=== PATIENT | male | born 1955 | race Caucasian/White ===

== ENCOUNTER 2016-09-12 09:07 | Emergency (ER) | payer BC ==
[~2016-09-12] VITALS: Ht 175.3 cm; Wt 100.0 kg
[~2016-09-12 09:07] MED LIST: HYDR12.56 PO
[2016-09-12 09:13] VITALS: TEMP 37; Ht 175.3 cm; Wt 100.0 kg
[2016-09-12] MEDS ORDERED: HYDR25TA4 PO (09:24)
[2016-09-12] MEDS ORDERED: LSN5 PO (09:24)
[2016-09-12] MEDS ORDERED: LIDOCAINE/EPINEPHRINE 1% 20 ML VIAL INFIL ONE (09:30)
[2016-09-12] MEDS ORDERED: SULFAMETHOXAZOLE/TRIMETHOPRIM DS 800/160MG TAB PO STA (10:27)
[2016-09-12] MEDS ORDERED: CEPHALEXIN 500MG HOME PACK 1 EA BTL PO ONE (10:30)
[2016-09-12] MEDS ORDERED: CEPH500C2 PO (10:45)
[2016-09-12] MEDS ORDERED: CEPHALEXIN MONOHYDRATE 250 MG CAP PO ONE (10:45)
[2016-09-12] MEDS ORDERED: SULF800T23 PO (10:45)
[2016-09-12 10:49] VITALS: BP 146/94; PULSE 85; O2SAT 98
--- NOTE | 2016-09-12 14:05 | EMERGENCY ROOM VISIT NOTE ---
History Report prepared by Shyanne: Marie Lundberg Under the Supervision of: Dr. Krish Mack D.O. First contact with patient: 09:17 Chief Complaint: WOUND INFECTION Stated Complaint: CYST Nursing Triage Summary: pt reports abcess to left shoulder/back area It is red and swollen pt reports he was to his PCP and they sent him here he reports he has been having trouble sleeping at night with it he reports no fevers and history of HTN and abcesses like this needing drainage History of Present Illness The patient is a 60 year old male who presents to the Emergency Room with complaints of a worsening infection starting a week ago. The patient reports that he has a cyst on the upper part of his left shoulder that he believes has become infected. The patient reports that it is painful and has become so large , it is uncomfortable to sleep now. He reports that he has had this before and had gone to has PCP who told him to come to the ED. He states that he decided to just come to the ED this time to cut out the middle man. The patient notes that he is also experiencing pain into his left arm. The patient denies fevers, chills, nausea, vomiting, weakness in arms, numbness in arms, and swelling in arms. Source of History: patient Onset: a week ago Position: other (global) Quality: other (global) Timing: worsening Associated Symptoms: No fevers, No chills, No nausea, No vomiting, No weakness, No numbness Note: The patient is experiencing pain in his left arm. The patient denies swelling in arms. Review of Systems See HPI for pertinent positives & negatives. A total of 10 systems reviewed and were otherwise negative. Past Medical & Surgical Medical Problems: (1) Abscess Family History No pertinent family history Social History Smoking Status: Never Smoker Drug Use: none Housing Status: lives with family Occupation Status: employed Current/Historical Medications Scheduled Cephalexin Monohydrate (Keflex), 500 MG PO QID Hydrochlorothiazide (Hctz), 25 MG PO DAILY Lisinopril (Lisinopril), 5 MG PO DAILY Sulfa/Trimethoprim (Bactrim Ds 800MG/160MG), 1 TAB PO BID Allergies Coded Allergies: No Known Allergies (Verified , 09/12/16) Physical Exam Vital Signs Date Time Temp Pulse Resp B/P (MAP) Pulse Ox O2 Delivery O2 Flow Rate FiO2 09/12/16 10:49 85 16 146/94 98 Room Air 09/12/16 09:13 37.0 81 16 145/100 99 Room Air Physical Exam GENERAL: Patient is awake, alert, and in no acute distress. Patient is resting comfortably and showing no signs of anxiety EYES: The conjunctivae are clear. The pupils are round and reactive. EARS, NOSE, MOUTH AND THROAT: The nose is without any evidence of any deformity. Mucous membranes are moist tongue is midline NECK: The neck is nontender and supple. RESPIRATORY: Normal respiratory effort is noted there is no evidence of wheezing rhonchi or rales CARDIOVASCULAR: Regular rate and rhythm noted there no murmurs rubs or gallops normal S1 normal S2 GASTROINTESTINAL: The abdomen is soft. Bowel sounds are present in all quadrants. Abdomen is nontender MUSCULOSKELETAL/EXTREMITIES: There is no evidence of gross deformity full range of motion is noted in the hips and shoulders SKIN: There is no obvious evidence of any rash. There are no petechiae, pallor or cyanosis noted. Fluctuant area in left posterior shoulder, no surrounding cellulitis noted, no drainage appreciated. NEUROLOGIC: Patient is awake alert and oriented x3 strength is symmetric patellar reflexes are 2+ bilaterally Medical Decision & Procedures Medications Administered Medications (Trade) Dose Ordered Sig/Nagi Route Start Time Stop Time Status Last Admin Dose Admin Trimethoprim/ Sulfamethoxazole (Septra Ds 800/ 160MG Tab) 1 tab NOW STAT PO 09/12/16 10:27 09/12/16 10:29 DC 09/12/16 10:47 1 TAB Cephalexin Monohydrate (Keflex Cap) 500 mg NOW ONCE PO 09/12/16 10:45 09/12/16 10:46 DC 09/12/16 10:47 500 MG Procedure Incision & Drainage Indication: Abscess. Location: Left posterior shoulder Verbal consent was obtained after the risks and benefits were explained, including but not limited to bleeding, scarring, infection, pain, and bone/joint /nerve damage. At this time, the risks of the procedure are less than the risks of NOT performing the procedure. A time out was taken and the correct patient and site identified. The skin was prepped with betadine and a sterile field set. The wound was anesthetized with 10 ml of 1% lidocaine without epinephrine. The abscess cavity was entered with a number 11 blade and copious purulent material expressed. Copious irrigation was performed using normal saline. Debridement was not performed. Packing placed and a sterile dressing applied. Detailed wound care instructions and signs and symptoms of worsening infection reviewed with the patient. No complications and the patient tolerated the procedure well. ED Course 916: The patient was evaluated in room C4. A complete history and physical examination were performed. 0930: Ordered Lidocaine/ Epinephrine 20 ml INFIL. 1027: Ordered Septra Ds 800/ 160MG Tab 1 tab PO. 1030: Ordered Keflex 500MG Home Pack 1 homepack PO. 1045: Ordered Keflex Cap 500 mg PO. 1052: Upon reevaluation, the patient is resting comfortably. I discussed the results and treatment plan with him. The patient verbalized agreement of the treatment plan. The patient was discharged home. Medical Decision Medication Reconciliation: I attest that I have personally reviewed the patient' s current medications list. Patient was found to have a slightly elevated blood pressure due to circumstances. I do not believe that the patient requires hypertension monitoring. Differential diagnosis: Etiologies such as cellulitis, abscess, MRSA infection, DVT, necrotizing fasciitis, dermatitis, drug eruption, as well as others were entertained.. The patient is a 60-year-old male who presented to the emergency department for an evaluation of swelling on his left posterior shoulder. The patient had a very large cutaneous abscess noted. The patient was treated with antibiotics the emergency department. Incision and drainage was undertaken with copious amounts of purulent material noted. The wound was packed. The patient was encouraged to take the packing out in 48 hours or return to the emergency department for wound packing removal. He was also encouraged to continue all medications as prescribed and follow-up with his family doctor. He was also encouraged to return the emergency Department immediately if he develop worsening symptoms such as high fever severe pain severe swelling bleeding or if need arises. Impression Primary Impression: Abscess Additional Impressions: Encounter for incision and drainage procedure Abscess of left shoulder Scribe Attestation The scribe's documentation has been prepared under my direction and personally reviewed by me in its entirety. I confirm that the note above accurately reflects all work, treatment, procedures, and medical decision making performed by me. Departure Information Dispostion Home / Self-Care Prescriptions Sulfa/Trimethoprim (Bactrim Ds 800MG/160MG) Tab 1 TAB PO BID, #14 TAB Prov: Krish Mack, DO 09/12/16 Cephalexin Monohydrate (KEFLEX) 500 Mg Cap 500 MG PO QID, #28 CAP Prov: Krish Mack, DO 09/12/16 Referrals Joel Multani M.D. (PCP) Forms HOME CARE DOCUMENTATION FORM, IMPORTANT VISIT INFORMATION, WORK / SCHOOL INSTRUCTIONS Patient Instructions My [facility] Additional Instructions Follow-up with your family doctor for recheck. Return for packing removal in 48- 72 hours. Continue using Motrin and Tylenol for pain. Return to the emergency department immediately if symptoms change worsen or the need arises. Problem Qualifiers
== END 2016-09-12 10:59 | disposition home or self-care (01) ==
LOC: C.EDB 09:08 → C.EDC 10:59
DX: L02.414 Cutaneous abscess of left upper limb (principal)